=== PATIENT | male | born 1985 | race Caucasian/White ===

== ENCOUNTER 2021-03-08 22:20 | Emergency (ER) | payer OTHER ==
[2021-03-08 22:27] VITALS: BP 125/82; PULSE 84; TEMP 97; BMI 25.0
[2021-03-08] MEDS ORDERED: PERMETHRIN 5% TOPICAL CREAM 60 GM TUBE TP ONE (23:18)
== END 2021-03-09 00:32 | disposition home or self-care (01) ==
LOC: JER 22:20
DX: B86 Scabies (principal)
CPT/HCPCS: 99283-25